=== PATIENT | female | born 1980 | race Caucasian/White ===

== ENCOUNTER → 2017-05-29 | Outpatient (CLI) | payer BC ==
--- NOTE | 2017-05-29 11:01 | DIAGNOSTIC IMAGING REPORT ---
Brain MRI WITHOUT CONTRAST HISTORY: Multiple cirrhosis. Follow-up. TECHNIQUE: Multiplanar multisequence MRI of the brain was performed without the use of contrast. COMPARISON STUDY: Brain MRI 07/22/2015. FINDINGS: No areas of restricted diffusion to suggest acute infarction. The midline structures are intact. No severe change in multiple scattered punctate and patchy areas of T2 hyperintensity seen within the periventricular and subcortical white matter of the supratentorial and infratentorial brain. Dominant focus within the right posterior frontal lobe measures 1 cm. The majority of these have a perpendicular orientation to the ventricles and are consistent with white matter plaques in the setting of multiple sclerosis. No definite new lesions identified. Nondiagnostic of evaluation for active demyelination given the lack of intravenous contrast. The major vascular flow voids at the skull base are well-maintained. The orbits are unremarkable. Mild mucosal thickening within the left ethmoid air cells and maxillary sinuses. The mastoid air cells are clear. IMPRESSION: No significant change in the scattered white matter plaques consistent with the patient's history of multiple sclerosis. Electronically signed by: Hugh Godfrey M.D. 05/29/2017 10:59 AM Dictated Date/Time: 05/29/2017 10:51 AM
== END | disposition home or self-care (01) ==
LOC: C.MRI 09:41
PROVIDERS: ATTEND Internal Medicine Cardiovascular Disease
DX: G35 Multiple sclerosis (principal)